=== PATIENT | female | born 1990 | race Caucasian/White ===

== ENCOUNTER 2018-09-27 22:49 | Emergency (ER) | payer OTHER ==
[2018-09-28 00:05] LABS: Bilirubin Negative (Negative); Blood, Urine Negative (Negative); Clarity Clear (Clear); Glucose, Urine (Dipstick) Normal (Negative); Leukocyte Negative Leu/uL (Negative); Nitrite Negative (Negative); Protein, Urine (Dipstick) 20 mg/dL (Neg-Trace)
[2018-09-28 00:06] LABS: Pregnancy Test - Urine (BHCG) Negative (Negative); Pregu Control Background? CLEAR/WHITE (CLR/WHITE); Pregu Control Bar Appear? YES (CONTROL BAR); Specific Gravity 1.036 (1.002-1.036)
[2018-09-28 00:25] LABS: #Basophils 0.1 thou/uL (0.0-0.2); #Eosinphils 0.3 thou/uL (0.0-0.7); #Lymphocytes 3.8 thou/uL (1.20-3.40); #Monocytes 0.8 thou/uL (0.11-0.59); #Neutrophils 4.8 thou/uL (1.40-6.50); %Basophils 0.9 % (0.0-1.0); %Eosinophils 3.1 % (0.0-10.0); %Monocytes 7.7 % (0.0-10.0); %Neutrophils 49.3 % (42.0-75.0); Hemoglobin 13.8 g/dL (12.0-16.0); Mean Corpuscular Hemoglobin 32.7 pg (27.0-31.0); Mean Platelet Volume 7.9 fL (7.4-10.4); Platelet Count 187 thou/uL (130-400); RBC Distribution Width 11.7 % (11.5-14.5); Red Blood Cell (RBC) Count 4.24 mill/uL (4.20-5.40); White Blood Cell (WBC) Count 9.8 thou/uL (4.8-10.8)
[2018-09-28 00:48] LABS: ALT (SGPT) 20 U/L (8-55); AST (SGOT) 19 U/L (5-34); Albumin 3.8 g/dL (3.5-5.0); Alkaline Phosphatase 63 U/L (40-150); Anion Gap 11 mmol/L (10-20); BUN (Urea Nitrogen) 12 mg/dL (7.0-18.7); Bilirubin, Total 0.2 mg/dL (0.2-1.2); Calc. Creatinine Clearance 0 mL/min (70-130); Calcium 9.1 mg/dL (7.8-10.44); Carbon Dioxide 23 mmol/L (22-29); Chloride 106 mmol/L (98-107); Estimated GFR-MDRD Greater than 90; Globulin 2.4 g/dL (2.4-3.5); Glucose 107 mg/dL (70-105); Lipase 20 U/L (8-78); Potassium 3.7 mmol/L (3.5-5.1); Protein, Total 6.2 g/dL (6.0-8.3); Sodium 136 mmol/L (136-145)
== END 2018-09-28 01:37 | disposition left against medical advice (07) ==
LOC: ERS 22:49
DX: Z53.21 Procedure and treatment not carried out due to patient leaving prior to being seen by health care provider (principal)
CPT/HCPCS: 36415; 80053; 81003; 81025; 83690; 85025

== ENCOUNTER 2019-12-23 08:52 | Outpatient (CLI) | payer OTHER ==
[2019-12-24 12:00] LABS: SARS-CoV-2 MS2 Positive; SARS-CoV-2 N Gene Negative; SARS-CoV-2 S Gene Negative; SARS-CoV-2 by NAA Not Detected (NotDetected); SARS-CoV-2 orf1ab Negative
== END 2019-12-23 08:53 | disposition home or self-care (01) ==
LOC: LABBT 08:52
PROVIDERS: ATTEND Family Medicine
DX: Z20.828 Contact with and (suspected) exposure to other viral communicable diseases (principal)
CPT/HCPCS: 87635; U0003

== ENCOUNTER 2019-12-26 09:50 | Inpatient (IN) | payer OTHER ==
--- NOTE | 2019-12-25 20:03 | PDOC.FPROB ---
FMR OB H&P: HPI - History of Present Illness Chief Complaint: Term Labor presenting for rLTCS Indentification: 29 y/o @ 39.2 weeks dated by 8.6 wk sono History of Present Illness: Pt presents to L&D this AM for scheduled rLTCS at noon today. She denies having any complaints at this time. No VB, LOF, contractions. Has been feeling baby move. Endorses some physiologic discharge today. No questions or complaints at this time. Primary Care Physician: Valarie Cruz FMR OB H&P: Current - Care : 5 Para: 2 Gestational age: 39.2 Due date: 12/31/19 Dating Criteria: 8.6 week sono Course/Complications: Size < Dates. 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 No invasive genetic testing performed. Nicotine dependence- has used 1 pack per week throughout Cannabis abuse in 1st and 2nd Trimester. Alcohol use in "occasionally," as reported by pt. Denies 3rd Trimester use. GERD Migraines - OB Labs Blood type: O RH: positive Antibody Screen: negative HIV: negative RPR: negative HepBsAg: negative Rubella: immune Urine drug screen: positive (cannabis + on 06/15/19 UDS negative on 11/11/19) Gonorrhea: negative Chlamydia: negative Pap Smear: NILM, HPV negative on 05/23/19 GBS: negative H&H: 10.4/29/7 on 11/11/19 Additional labs: 2 hr GTT 76. 142, 118 - First Trimester Ultrasound First trimester: 8.6 week dating sono - Anatomy Survey Anatomy survey: 19.2 weeks performed by [facility] nml anatomy hadlock 43% no evidence of placenta accreta or previa - Additional Ultrasound Additional: grwoth scan on 12/21 28.9% hadlock efw 2970 g FMR OB H&P: History - Past Medical History PMH: Size < Dates. 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 No invasive genetic testing performed. Nicotine dependence- has used 1 pack per week throughout Cannabis abuse in 1st and 2nd Trimester. Alcohol use in "occasionally," as reported by pt. Denies 3rd Trimester use. GERD Migraines - OB History OB History: 02/03/2010: , weight 7 lbs 5 oz @ 38 weeks 04/09/2016: , weight 7 lbs 3 oz @ 38 weeks Hx of induced AB hx of spontaneous AB - FUSE SPOOLER History FUSE SPOOLER History: Pap 05/2019 NILM HPV neg Hx of LEEP in 2014: pap- LGSIL, with CLIFF III on colpo. - Surgical History Sx History: X2 c-sections - Social History Social History: Nicotine dependence- has used 1 pack per week throughout Cannabis abuse in 1st and 2nd Trimester. Alcohol use in "occasionally," as reported by pt. Denies 3rd Trimester use. - Family History Family History: mother: MDD, bipolar d/o, HLD, anxiety Sister: heart murmur Brother: cleft palate Brother: muscular dystrophy X2 sons: alive and healthy. different fathers of each child FMR OB H&P: Medications - Current Home Medications: Medication Instructions Recorded Confirmed Type Pnv No.95/Ferrous Fum/Folic AC 1 each PO DAILY 12/26/19 12/26/19 History [ [place]] Allergies/Adverse Reactions: Allergies Allergy/AdvReac Type Severity Reaction Status Date / Time No Known Allergies Allergy Verified 12/26/19 11:08 FMR OB H&P: ROS - Review of Systems General: denies: fever/chills ENT: denies: nasal congestion, rhinorrhea Cardiovascular: denies: chest pain, palpitation, edema Respiratory: denies: cough, congestion, shortness of breath Gastrointestinal: denies: abdominal pain, indigestion, bloating, cramping, diarrhea, constipation Genitourinary (Female): reports: vaginal discharge. denies: incontinence, dysuria, hematuria, polyuria, vaginal pain, vaginal bleeding, vaginal mass/sore, vaginal pressure Musculoskeletal: denies: pain, stiffness, tenderness Neurologic: denies: numbness, syncope Integumentary: denies: itching FMR OB H&P: Vital Signs - Heart Tones Baseline: 130 Variability: moderate Acceleration: absent Deceleration: absent Category: category 1 [place] contractions every: none seen FMR OB H&P: Physical Exam - Physical Exam General: NAD, awake, alert and oriented HEENT: normocephalic and atraumatic, PERRLA Chest: non-tender to palpation Heart: RRR, normal S1/S2, no murmurs/rubs/gallops, pulses present, no edema General: CTAB, no respiratory distress, good air movement, no rales/rhonchi, no wheezing, no retractions Abdomen: gravid Musculoskeletal: FROM in all four extremities Skin: no rash, good tugor, capillary refill <2 seconds Psychiatric: intact recent and remote memory, good judgement and insight, normal mood and affect FMR OB H&P: A/P - Problem List (1) Term Current Visit: No Status: Acute Code(s): Z34.90 - ENCNTR FOR SUPRVSN OF NORMAL , UNSP, UNSP TRIMESTER (2) Status post repeat low transverse section Current Visit: No Status: Acute Code(s): Z98.891 - HISTORY OF UTERINE SCAR FROM PREVIOUS SURGERY (3) Efbbvlf-Llebv-Tuzgr disease Current Visit: No Status: Acute Code(s): 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 Term 2. scheduled rLTCS - X2 prior c-sections performed at [facility]. - op reports reviewed and no complications previously or dense scar tissue. - reported penicillin allergy as child, but has had penicillin antibiotics since with no reaction. Ancef 1 g for ppx. 3. 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 4. Hx of cannabis abuse in 1 and 2 Trimester - cessation with proof of neg UDS in November 2019 5. Hx of etoh, wine use in 1 and 2 Trimester - pt states 3 times total 6. Tobacco use d/o - smokes 1 pack per week of cigarettes - continued cessation counseling. Care plan discussed with Dr. Bella, who is in agreement with plan.
[2019-12-26] MEDS ORDERED: Ondansetron PF 4 MG/2 ML Vial IVP PRN ×3 (10:55→16:03)
[2019-12-26] MEDS ORDERED: hydrALAZINE 20 MG/ML VIAL SLOW IVP PRN ×2 (10:55→16:03)
[2019-12-26] MEDS ORDERED: Promethazine HCl 25 MG/ML VIAL IM PRN ×2 (10:55→11:43)
[2019-12-26] MEDS: Lactated Ringer's 1,000 ML IV SCH ×2 (10:55→23:52)
[2019-12-26] MEDS ORDERED: Bicitra 30 ML UDCUP PO SCH (11:00)
[2019-12-26] MEDS ORDERED: CEFAZOLIN 2 GM in Premix Bag 1 BAG IVPB SCH (11:00)
[2019-12-26 11:06] VITALS: BMI 27.8
[2019-12-26] MEDS ORDERED: HYDROmorphone 2 MG/ML VIAL SLOW IVP PRN (11:43)
[2019-12-26] MEDS ORDERED: Meperidine HCl/PF 25 MG/ML VIAL SLOW IVP PRN (11:43)
[2019-12-26] MEDS ORDERED: Promethazine HCl 25 MG SUPP PR PRN (11:43)
[2019-12-26] MEDS ORDERED: Naloxone HCl 0.4 mg/ml Vial IV PRN (11:43)
[2019-12-26] MEDS ORDERED: L&D-Morphine 4 MG/ML VIAL SLOW IVP PRN (11:43)
[2019-12-26] MEDS ORDERED: Ondansetron HCl/PF 4 MG/2 ML Vial IVP PRN (11:43)
[2019-12-26] MEDS ORDERED: Ketorolac Tromethamine 30 MG/ML VIAL IVP PRN (11:43)
[2019-12-26] MEDS ORDERED: Naloxone HCl 0.4 mg/ml Vial IVP PRN ×2 (11:43)
[2019-12-26] MEDS ORDERED: diphenhydrAMINE 50 MG/ML VIAL IVP PRN (11:43)
[2019-12-26] MEDS ORDERED: Communication Order-Pharmacy FS SCH (11:45)
[2019-12-26 11:47] LABS: Hemoglobin 11.4 g/dL (12.0-16.0); Mean Corpuscular HGB CONC 34.5 g/dL (32.0-36.0); Mean Corpuscular Hemoglobin 32.9 pg (27.0-31.0); Mean Corpuscular Volume 95.4 fL (78.0-98.0); Mean Platelet Volume 8.3 fL (7.4-10.4); Platelet Count 184 thou/uL (130-400); RBC Distribution Width 11.9 % (11.5-14.5); Red Blood Cell (RBC) Count 3.45 mill/uL (4.20-5.40); White Blood Cell (WBC) Count 10.1 thou/uL (4.8-10.8)
[2019-12-26] MEDS ORDERED: Fentanyl 100 MCG/2 ML VIAL ONE (11:54)
[2019-12-26] MEDS ORDERED: PHENYLEPHRINE-NS 100 MCG/ML 10 ML SYRINGE ONE (11:55)
[2019-12-26] MEDS ORDERED: Dexamethasone 4 mg/ml Vial ONE (11:55)
[2019-12-26] MEDS ORDERED: Oxytocin 10 UNITS/ML VIAL ONE (11:55)
[2019-12-26] MEDS ORDERED: Ondansetron PF 4 MG/2 ML Vial ONE (11:55)
[2019-12-26] MEDS ORDERED: Ketorolac Tromethamine 30 MG/ML VIAL ONE (11:55)
[2019-12-26] MEDS ORDERED: ePHEDrine 50 MG/ML VIAL ONE (11:55)
[2019-12-26 12:04] LABS: HBSAg Index 0.15 S/CO (0-0.99); Hep B Surf Ag Non-Reactive S/CO (NonReactive)
[2019-12-26 12:05] LABS: Syphilis Antibody Nonreactive (Nonreactive); Syphilis Antibody Index 0.03 S/CO (<1.00 Non-Reactive)
[2019-12-26] MEDS ORDERED: Methylergonovine 0.2 MG/ML VIAL IM PRN (12:09)
[2019-12-26] MEDS ORDERED: Carboprost 250 MCG/ML AMP IM PRN (12:09)
[2019-12-26 12:35] LABS: Amphetamine Not Detected (NotDetected); Barbiturates Screen Not Detected (NotDetected); Benzodiazepine Screen Not Detected (NotDetected); Cocaine Metabolite Screen Not Detected (NotDetected); Medtox Control Line Valid? VALID (VALID); Medtox Reader # READER 4; Methadone Not Detected (NotDetected); Methamphetamine Not Detected (NotDetected); Opiate Screen Not Detected (NotDetected); Oxycodone Screen Not Detected (NotDetected); Phencyclidine (PCP) Not Detected (NotDetected); THC/Cannabinoid Screen Not Detected (NotDetected); Tricyclic Screen Not Detected (NotDetected)
--- NOTE | 2019-12-26 14:10 | PDOC.OPDEL ---
OB Operative/Delivery Note Delivery Dr/Surgeon: Dr. Patrick Cr Pre-Delivery Diagnosis: scheduled section Procedure/Post Delivery Dx: repeat low transverse CS Weeks gestation: 39 (39.2) Anesthesia: spinal - Additional Findings/Plan Placenta delivered: manual removal Repaired Obstetrical Laceration: none findings: low transverse hysterotomy without extension Estimated blood loss: 420 Compilations/Other Findings: Date of Procedure: 12/26/19 Resident Surgeons: Dr. Patrick Cr Attending Surgeon: Dr. Bella Procedure: repeat low transverse caesarean section Preoperative Diagnosis: 1) Term intrauterine 2) Charcot Ava Tooth disease 3) Marijuana use in 1 and 2 T 4) Etoh use in 1 and 2 T 5) Tobacco use d/o 1 pack per week 6) X2 prior LTCS 7) size measuring less than dates Postoperative Diagnosis: 1) Term delivered 2) same as above Anesthesia: spinal Indications: 29 year old -> 3023 @ 39.2 wks presents for repeat scheduled LTCS. X2 previous cesareans. Procedure in Detail: After risks, benefits, and alternatives were explained to the patient, she gave informed consent. Pre-operative antibiotics included ancef 1 g. The patient was taken to the operating room and spinal anesthesia was placed. FHT with doppler demonstrated 125 prior to procedure. She was placed in the supine position with a left tilt and prepped and draped in usual sterile fashion. A Pfannenstiel incision was made with a scalpel and carried down to the level of the fascia which was sharply nicked. The fascial cut was extended bilaterally with curved mayos. The inferior and superior edges of the cut fascial edges were elevated with Sourav clamps and the underlying rectus muscles bluntly and sharply dissected free. The recti were divided using blunt dissection. The peritoneum was entered bluntly and retracted manually. The uterus was palpated and found to be free of adhesions. A low transverse score was made with the scalpel and the uterus was entered in the midline with the scalpel. Amniotomy performed with allis. Clear fluid was seen. The hysterotomy was extended manually. The infant was noted to be vertex and was easily delivered by fundal pressure. Mouth and nares were bulb suctioned. Cord clamped after 30 seconds delayed and cut and grossly normal male infant was handed to waiting nurse. Cord blood was obtained. Placenta was manually extracted, found to be intact with 3 vessel cord and sent to path. The uterus was externalized and curetted with a dry lat, while damp lat was placed over the fundus. Ring forceps were applied to the hysterotomy edges for hemostasis and the endometrium was curetted with a dry lap. The hysterotomy was closed with a running locking 0-Monocryl in the usual fashion with tags on lateral edges. There was a small amount of oozing at the level of the superior border on Left hysterotomy serosal edge, which was hemostatic after bovie . Following this hemostasis was appreciated. The uterus was internalized and hysterotomy was again noted to be hemostatic. The hysterotomy tags were then cut. The rectus was evaluated for bleeders, and found to be hemostatic. The fascia was closed with a running non-locking 0-PDS suture. The subcutaneous tissue was irrigated and the bleeders were attended to with bovie. The skin was approximated with 4-0 monocryl and a pressure bandage was placed. All counts were correct. The patient tolerated the procedure well and was taken to the recovery room in stable condition. QBL: 420 ml Time of delivery: 1251 Complications: None Specimens: placenta to path due to size less than dates. Findings: Grossly normal female . Grossly normal placenta with 3 vessel cord. Drains: Rosales to gravity draining clear urine Post delivery plan: recovery in LICU
[2019-12-26] MEDS ORDERED: Meperidine HCl/PF 25 MG/ML VIAL ONE (15:29)
[2019-12-26] MEDS ORDERED: Bisacodyl 10 MG SUPP PR PRN (16:03)
[2019-12-26] MEDS ORDERED: diphenhydrAMINE 25 MG CAP PO PRN (16:03)
[2019-12-26] MEDS ORDERED: Acetaminophen 325 MG TAB PO PRN (16:03)
[2019-12-26] MEDS ORDERED: Lanolin Ointment 7 GM TUBE TOP PRN (16:03)
[2019-12-26] MEDS ORDERED: Methylergonovine 0.2 MG/ML VIAL ONE (16:39)
--- NOTE | 2019-12-26 16:48 | PDOC.OBPPN ---
FMR OB PN: Subj - Interval History Hospital Day: 1 Day: 1 Chief Complaint: 4 hour postop check Indentification: 29 y/o Interval History: No complaints at this time. FMR OB PN: Obj - Maternal Vital signs: BP: [107/62] HR: [80] RR: [16] Tmax: [98.3] - Urine output I&O: 12/25/19 12/26/19 12/27/19 06:59 06:59 06:59 Output Total 510 Balance -510 - Lochia Lochia: none - Pain Management Intervention: epidural FMR OB PN: Exam - Physical Exam General: NAD, awake, alert and oriented HEENT: normocephalic and atraumatic, PERRLA Neck: supple Heart: RRR, normal S1/S2, no murmurs/rubs/gallops, pulses present, no edema General: CTAB, no respiratory distress, good air movement, no rales/rhonchi, no wheezing, no retractions Abdomen: soft, fundus(cm) (at umbilicus), other (appropriately tender) Musculoskeletal: pulses present, FROM in all four extremities Neurological: no tremor, no focal deficit Skin: good tugor, no jaundice : bandage intact, no drainage, appropriately tender Psychiatric: intact recent and remote memory, good judgement and insight, normal mood and affect FMR OB PN: Data - Labs Lab results: Laboratory Results - last 24 hr 12/26/19 12/26/19 12/26/19 10:43 10:43 10:43 WBC 10.1 RBC 3.45 L Hgb 11.4 L Hct 32.9 L MCV 95.4 MCH 32.9 H MCHC 34.5 RDW 11.9 Plt Count 184 MPV 8.3 Urine Opiates Screen Ur Oxycodone Screen Urine Methadone Screen Ur Propoxyphene Screen Ur Barbiturates Screen Ur Tricyclics Screen Ur Phencyclidine Scrn Ur Amphetamines Screen U Methamphetamines Scrn U Benzodiazepines Scrn U Cocaine Metab Screen U Cannabinoids Screen Drug Screen Comment Syphilis IgG/IgM Ab Nonreactive Hep Bs Antigen Non-Reactive Blood Type Antibody Screen Crossmatch 12/26/19 12/26/19 12/26/19 10:43 11:55 12:01 WBC RBC Hgb Hct MCV MCH MCHC RDW Plt Count MPV Urine Opiates Screen Not Detected Ur Oxycodone Screen Not Detected Urine Methadone Screen Not Detected Ur Propoxyphene Screen Not Detected Ur Barbiturates Screen Not Detected Ur Tricyclics Screen Not Detected Ur Phencyclidine Scrn Not Detected Ur Amphetamines Screen Not Detected U Methamphetamines Scrn Not Detected U Benzodiazepines Scrn Not Detected U Cocaine Metab Screen Not Detected U Cannabinoids Screen Not Detected Drug Screen Comment Syphilis IgG/IgM Ab Hep Bs Antigen Blood Type O POSITIVE O POSITIVE Antibody Screen NEGATIVE Crossmatch See Detail FMR OB PN: A/P - Problem List (1) Term Current Visit: No Status: Acute Code(s): Z34.90 - ENCNTR FOR SUPRVSN OF NORMAL , UNSP, UNSP TRIMESTER (2) Status post repeat low transverse section Current Visit: No Status: Acute Code(s): Z98.891 - HISTORY OF UTERINE SCAR FROM PREVIOUS SURGERY (3) Cwlxegs-Ybjsq-Amwxi disease Current Visit: No Status: Acute Code(s): 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 ##sIUP term s/p rLTCS - X2 prior c-sections performed at [facility]. - op reports reviewed and no complications previously or dense scar tissue. - reported penicillin allergy as child, but has had penicillin antibiotics since with no reaction. Ancef 1 g for ppx - Pt not having TINEO, vision changes, CP, SOB, edema. 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 ##Hx of cannabis abuse in 1 and 2 Trimester - cessation with proof of neg UDS in November 2019 - UDS obtained 12/25, this was negative, UDS and MDS pending on baby ##Hx of etoh, wine use in 1 and 2 Trimester - pt states 3 times total ##Tobacco use d/o - smokes 1 pack per week of cigarettes - continued cessation counseling. PCP: Anthony Dispo: continue with routine PP care. VSS. pain controlled. increase diet as tolerated. continue to monitor.
[2019-12-26] MEDS: Ferrous Sulfate 325 MG TAB PO SCH (19:39)
[2019-12-27] MEDS: HYDROcodone/Acetaminophen 5/325 mg Tablet PO PRN ×4 (03:00→18:07)
--- NOTE | 2019-12-27 07:42 | PDOC.PP ---
Post Progress Note Post Day #: 1 Subjective: PP rLTCS day #1 pt c/o slight lower abd pain denies n/v. has not voided urine yet this mornign, but feels like she needs to. no gas or BM yet. tolerating PO, good appetite bonding well with . latching well. PO intake tolerated: yes Flatus: no Ambulation: yes Vital Signs (12 hours) Temp Pulse Resp BP Pulse Ox 12/27/19 04:55 98.2 F 63 16 97/54 L 12/26/19 23:45 98.5 F 54 L 16 95/51 L 12/26/19 20:36 98.5 F 55 L 16 91/53 L 97 Weight Weight 62.596 kg - Physical Examination General: NAD Cardiovascular: no m/r/g, RRR Respiratory: clear to auscultation bilaterally, non-labored breathing Abdominal: + bowel sounds, lochia, no distention, appropriately TTP Extremities: negative homans (B) Skin: CS incision dry & intact, no rash Neurological: no gross focal deficits Psychiatric: A&Ox3, normal affect Result Diagrams: 12/26/19 10:43 Additional Labs: Post Labs Hep Bs Antigen Non-Reactive S/CO (NonReactive) 12/26/19 10:43 Blood Type O POSITIVE 12/26/19 12:01 (1) Term Code(s): Z34.90 - ENCNTR FOR SUPRVSN OF NORMAL , UNSP, UNSP TRIMESTER Status: Acute (2) Status post repeat low transverse section Code(s): Z98.891 - HISTORY OF UTERINE SCAR FROM PREVIOUS SURGERY Status: Acute (3) Njgpnyj-Rwrrb-Oavzr disease Code(s): 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 Term delivered 2. scheduled rLTCS delivered - X3 prior c-sections - norco for pain control PRN Q4H, heating pad - iron PO BID for 6 weeks - stool softener 3. 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 - aware 4. Hx of cannabis abuse in 1 and 2 Trimester - cessation with proof of neg UDS in November 2019 - CM consult pending. 5. Hx of etoh, wine use in 1 and 2 Trimester - pt states 3 times total - denies current use 6. Tobacco use d/o - smokes 1 pack per week of cigarettes - continued cessation counseling. Dispo: plan d/c home tomorrow, stable and tolerated procedure well.
[2019-12-27] MEDS: Ferrous Sulfate 325 MG TAB PO SCH ×2 (08:00→23:40)
[2019-12-27] MEDS: Prenatal Vitamin 1 TAB PO SCH (08:00)
[2019-12-27] MEDS ORDERED: Adacel (T-DAP) 0.5 ML SYRINGE IM ONE (09:00)
[2019-12-27 10:50] LABS: Hemoglobin 9.5 g/dL (12.0-16.0); Mean Corpuscular HGB CONC 34.3 g/dL (32.0-36.0); Mean Corpuscular Volume 96.3 fL (78.0-98.0); Mean Platelet Volume 7.5 fL (7.4-10.4); Platelet Count 141 thou/uL (130-400); RBC Distribution Width 11.8 % (11.5-14.5); Red Blood Cell (RBC) Count 2.86 mill/uL (4.20-5.40); White Blood Cell (WBC) Count 16.2 thou/uL (4.8-10.8)
[2019-12-27] MEDS: Simethicone Chewable 80 MG TAB PO PRN ×3 (11:57→21:25)
[2019-12-27] MEDS: Ibuprofen 800 MG TAB PO SCH ×2 (13:50→21:25)
[2019-12-28] MEDS: HYDROcodone/Acetaminophen 5/325 mg Tablet PO PRN ×3 (02:22→11:52)
[2019-12-28] MEDS: Ibuprofen 800 MG TAB PO SCH (05:22)
[2019-12-28] MEDS: Simethicone Chewable 80 MG TAB PO PRN ×3 (05:24→11:52)
--- NOTE | 2019-12-28 07:22 | PDOC.PP ---
Post Progress Note Post Day #: 2 Subjective: Pt reports doing well and wanting to go home today. PT states she has mild pain that worsened to moderate with movement in lower abdomen or if she does not take the norco. passing gas, no BM yet, eating well. urinating well. no other complaints. light lochia less than period. bonding well with infant. planning to bottle feed once done with colostrum. desires IUD for PP contraception. PO intake tolerated: yes Flatus: yes Ambulation: yes Vital Signs (12 hours) Temp Pulse Resp BP 12/28/19 05:27 98.3 F 67 14 112/65 12/28/19 02:12 98.2 F 63 16 122/73 12/27/19 21:28 97.9 F 65 16 116/66 Weight Weight 62.596 kg - Physical Examination General: NAD Cardiovascular: no m/r/g, RRR Respiratory: clear to auscultation bilaterally, non-labored breathing Abdominal: + bowel sounds, lochia, no distention, appropriately TTP Extremities: negative homans (B) Skin: CS incision dry & intact, no rash Neurological: no gross focal deficits Psychiatric: A&Ox3, normal affect Result Diagrams: 12/27/19 10:41 Additional Labs: Post Labs Hep Bs Antigen Non-Reactive S/CO (NonReactive) 12/26/19 10:43 Blood Type O POSITIVE 12/26/19 12:01 (1) Term Code(s): Z34.90 - ENCNTR FOR SUPRVSN OF NORMAL , UNSP, UNSP TRIMESTER Status: Acute (2) Status post repeat low transverse section Code(s): Z98.891 - HISTORY OF UTERINE SCAR FROM PREVIOUS SURGERY Status: Acute (3) Dblrtih-Moifd-Yowsk disease Code(s): 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 Term delivered PP day #2 2. scheduled rLTCS delivered - X3 prior c-sections - norco for pain control PRN Q4H, heating pad - iron PO BID for 6 weeks - stool softener 3. 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 - aware 4. Hx of cannabis abuse in 1 and 2 Trimester - cessation with proof of neg UDS in November 2019 - CM consult recommended infant to go home with mother with no further intervention. 5. Hx of etoh, wine use in 1 and 2 Trimester - pt states 3 times total - denies current use 6. Tobacco use d/o - smokes 1 pack per week of cigarettes - continued cessation counseling. Dispo: plan d/c home today with 2-3 days of [place] script, stable and tolerated procedure well.
[2019-12-28] MEDS ORDERED: Docusate 100 MG CAP PO PRN (07:26)
[2019-12-28] MEDS: Ferrous Sulfate 325 MG TAB PO SCH (07:54)
[2019-12-28] MEDS: Prenatal Vitamin 1 TAB PO SCH (07:54)
[2019-12-28 11:34] VITALS: BP 118/59; TEMP 98.5
== END 2019-12-28 12:01 | disposition home or self-care (01) | DRG 787 ==
LOC: L&D 09:50 → 3SE 16:11 → MERGE 17:00
PROVIDERS: ADMIT Family Medicine; ATTEND Family Medicine
PROC: 10D00Z1 Extraction of Products of Conception, Low, Open Approach (ICD-10-PCS; principal; 2019-12-26)
DX: O34.211 Maternal care for low transverse scar from previous cesarean delivery (principal); O99.354 Diseases of the nervous system complicating childbirth; O99.324 Drug use complicating childbirth; Z3A.39 39 weeks gestation of pregnancy; Z37.0 Single live birth; G60.0 Hereditary motor and sensory neuropathy; O99.334 Smoking (tobacco) complicating childbirth; F17.200 Nicotine dependence, unspecified, uncomplicated; F12.10 Cannabis abuse, uncomplicated; O99.314 Alcohol use complicating childbirth; O99.62 Diseases of the digestive system complicating childbirth; K21.9 Gastro-esophageal reflux disease without esophagitis; G43.909 Migraine, unspecified, not intractable, without status migrainosus; F10.10 Alcohol abuse, uncomplicated; Z20.828 Contact with and (suspected) exposure to other viral communicable diseases; Z79.899 Other long term (current) drug therapy
CPT/HCPCS: 36415; 51702; 80306; 85027; 86780; 86850; 86900; 86901; 87340; 88307; J0690; J1100; J1885; J2175; J2210; J2270; J2405; J3010; J3490